=== PATIENT | female | born 1980 | race Caucasian/White ===

== ENCOUNTER 2018-11-21 09:28 | Emergency (ER) | payer MEDICAID ==
[2018-11-21] MEDS ORDERED: IBUPROFEN 800 MG TABLET PO ONE (09:41)
--- NOTE | 2018-11-21 10:25 | RADIOLOGY REPORT (SQ) ---
EXAM DESCRIPTION: ANKLE RIGHT COMPLETE COMPLETED DATE/TIME: 11/21/2018 9:53 am REASON FOR STUDY: ankle pain swelling, rolled ankle COMPARISON: None. NUMBER OF VIEWS: Three views right ankle. LIMITATIONS: None. FINDINGS: Marked soft tissue swelling laterally. Otherwise normal. OTHER: No other significant finding. IMPRESSION: Soft tissue swelling without gross fracture. TECHNICAL DOCUMENTATION: JOB ID: [id number] Reading location - IP/workstation name: [email or web address] MANUEL
--- NOTE | 2018-11-21 10:25 | ER Document Report ---
HPI - HPI Patient complains to provider of: Right ankle pain Time Seen by Provider: 11/21/18 09:40 Onset: Just prior to arrival Onset/Duration: Sudden Quality of pain: Achy Severity: Severe Pain Level: 4 Context: Patient presents emergency department with right ankle pain swelling. Patient reports that she rolled her ankle when she stepped on uneven ground, felt a pop, was able to walk barely afterwards. Denies past medical history of injury to the ankle. No other complaints such as fever vomiting diarrhea. Associated Symptoms: None Exacerbated by: Movement, Walking Relieved by: Denies Similar symptoms previously: No Recently seen / treated by doctor: No - CONSTITUTIONAL Constitutional: DENIES: Fever, Chills - REPRODUCTIVE Reproductive: DENIES: : - MUSCULOSKELETAL Musculoskeletal: REPORTS: Extremity pain - left ankle Past Medical History - General Information source: Patient - Social History Smoking Status: Unknown if Ever Smoked Cigarette use (# per day): No Frequency of alcohol use: None Drug Abuse: None Lives with: Family Family History: None Patient has suicidal ideation: No Patient has homicidal ideation: No Renal/ Medical History: Reports: Other - pelvic pain. Denies: Hx Peritoneal Dialysis Past Surgical History: Reports: Hx Cholecystectomy, Hx Gynecologic Surgery Vertical Provider Document - CONSTITUTIONAL Agree With Documented VS: Yes Exam Limitations: No Limitations General Appearance: WD/WN, Mild Distress - Winces when ankle palpated - HEENT HEENT: Atraumatic, Normocephalic - NECK Neck: Supple - RESPIRATORY Respiratory: No Respiratory Distress - CARDIOVASCULAR Cardiovascular: Regular Rate - MUSCULOSKELETAL/EXTREMETIES Musculoskeletal/Extremeties: Tender - Right ankle laterally swollen good pedal pulse good cap refill - NEURO Level of Consciousness: Awake, Alert, Appropriate - DERM Integumentary: Warm, Dry Adult Front & Back Diagram: 1 - Swelling, pain with touch, good pedal pulse good cap refill foot warm Course - Re-evaluation Re-evalutation: 11/21/18 10:56 No acute fracture. Patient was instructed on sprain. Instructed on plan of ca re follow-up with orthopedics she verbalized understanding. Reports she is taken [place] in the past without problems. Dictation of this chart was performed using voice recognition software; therefor e, there may be some unintended grammatical errors. - Vital Signs Vital signs: Temp Pulse Resp BP Pulse Ox 97.8 F 88 18 122/68 100 11/21/18 09:37 11/21/18 09:37 11/21/18 09:37 11/21/18 09:37 11/21/18 09:37 - Diagnostic Test Radiology reviewed: Image reviewed, Reports reviewed Procedures - Immobilization Right Ankle Immobilizer type: Ankle stirrup Performed by: ELOINA ojeda Post-Proc Neuro Vasc Exam: Unchanged from pre-exam Alignment checked and good: Yes Discharge - Discharge Clinical Impression: Right ankle pain Qualifiers: Chronicity: acute Qualified Code(s): M25.571 - Pain in right ankle and joints of right foot Ankle sprain Qualifiers: Encounter type: initial encounter Involved ligament of ankle: unspecified ligament Laterality: right Qualified Code(s): S93.401A - Sprain of unspecified ligament of right ankle, initial encounter Condition: Stable Disposition: HOME, SELF-CARE Instructions: Ankle Stirrup Splint ([facility]), Use of Crutches ([facility]), Ice & Elevation ([facility]), Oral Narcotic Medication ([facility]), Sprained Ankle ([facility]) Additional Instructions: *You have been evaluated for an ankle injury, sprain *Rest/Ice/Elevate your ankle *Maintain the splint *Use your crutches *Follow up with orthopedics- see information attached- within one week for recheck *Take medication as prescribed *Return to ED for worsening condition, changes, needs Prescriptions: Hydrocodone/Acetaminophen [[place] 5-325 mg Tablet] 1 tab PO QID #15 tablet Forms: Return to Work Referrals: AARON SEXTON MD [ASSOCIATE] - Follow up as needed [facility] [Provider Group] - Follow up as needed
[2018-11-21 11:14] VITALS: BP 132/78
== END 2018-11-21 11:14 | disposition home or self-care (01) ==
LOC: ER 09:28
DX: S93.401A Sprain of unspecified ligament of right ankle, initial encounter (principal); M25.571 Pain in right ankle and joints of right foot; X50.0XXA Overexertion from strenuous movement or load, initial encounter
CPT/HCPCS: 99283; 73610; L4350

== ENCOUNTER 2019-03-19 07:53 | Emergency (ER) | payer MEDICAID ==
[2019-03-19] MEDS ORDERED: METOCLOPRAMIDE HCL INJ/PF 10 MG/2 ML SDV IV ONE (08:58)
[2019-03-19] MEDS ORDERED: NORMAL SALINE 1000 ML 1,000 ML IV ONE (08:58)
--- NOTE | 2019-03-19 09:01 | ER Document Report ---
ED GI/ - General Chief Complaint: Nausea/Vomiting Stated Complaint: NAUSEA Time Seen by Provider: 03/19/19 08:48 Notes: Patient is a 39-year-old female who is 13 weeks who presents to emergency department with a chief complaint of nausea and vomiting. Patient reports throughout her whole she has had issues with vomiting. Patient reports over the past 24 hours she has vomited about 3 times. Patient reports she does have care and had an ultrasound at 11 weeks which was normal. Patient denies any vaginal bleeding, vaginal discharge or abdominal pain. Patient reports she drinks 1 can of fe sarmad per day and does nibble on food but has not been able to eat or drink much throughout this . Patient reports she just feels very dehydrated. Patient denies urinary symptoms. TRAVEL OUTSIDE OF THE [place] IN LAST 30 DAYS: No - Related Data Allergies/Adverse Reactions: naproxen Allergy (Verified 03/19/19 08:19) oxycodone [From OxyContin] Allergy (Verified 03/19/19 08:19) tramadol Allergy (Verified 03/19/19 08:19) Past Medical History - General Information source: Patient - Social History Smoking Status: Never Smoker Chew tobacco use (# tins/day): No Frequency of alcohol use: None Drug Abuse: None Lives with: Family Family History: None Patient has suicidal ideation: No Patient has homicidal ideation: No - Past Medical History Cardiac Medical History: Reports: None Pulmonary Medical History: Reports: None EENT Medical History: Reports: None Neurological Medical History: Reports: None Endocrine Medical History: Reports: None Renal/ Medical History: Reports: None. Denies: Hx Peritoneal Dialysis Malignancy Medical History: Reports: None GI Medical History: Reports: None Musculoskeletal Medical History: Reports None Skin Medical History: Reports None Psychiatric Medical History: Reports: None Traumatic Medical History: Reports: None Infectious Medical History: Reports: None Past Surgical History: Reports: Hx Cholecystectomy, Hx Gynecologic Surgery Review of Systems - Review of Systems Constitutional: No symptoms reported EENT: No symptoms reported Cardiovascular: No symptoms reported Respiratory: No symptoms reported Gastrointestinal: See HPI Genitourinary: No symptoms reported Female Genitourinary: No symptoms reported Musculoskeletal: No symptoms reported Skin: No symptoms reported Hematologic/Lymphatic: No symptoms reported Neurological/Psychological: No symptoms reported Physical Exam - Vital signs Vitals: Temp Pulse Resp BP Pulse Ox 98.1 F 111 H 18 145/75 H 100 03/19/19 07:57 03/19/19 07:57 03/19/19 07:57 03/19/19 07:57 03/19/19 07:57 Interpretation: Tachycardic - Notes Notes: Reviewed vital signs and nursing note as charted by RN. CONSTITUTIONAL: Well-appearing, well-nourished; attentive, alert and interactive with good eye contact; acting appropriately for age HEAD: Normocephalic; atraumatic; No swelling EYES: PERRL; Conjunctivae clear, no drainage; EOMI ENT: External ears without lesions; External auditory canal is patent; TMs without erythema, landmarks clear and well visualized; no rhinorrhea; Pharynx without erythema or lesions, no tonsillar hypertrophy, airway patent, somewhat dry mucous membranes, pink. NECK: Supple, no cervical lymphadenopathy, no masses CARD: Regular rate and rhythm; no murmurs, no rubs, no gallops, capillary refill < 2 seconds, symmetric pulses RESP: Respiratory rate and effort are normal. There is normal chest excursion. No respiratory distress, no retractions, no stridor, no nasal flaring, no accessory muscle use. The lungs are clear to auscultation bilaterally, no wheezing, no rales, no rhonchi. ABD/GI: Normal bowel sounds; non-distended; soft, non-tender, no rebound, no guarding, no palpable organomegaly EXT: Normal ROM in all joints; non-tender to palpation; no effusions, no edema SKIN: Normal color for age and race; warm; dry; good turgor; no acute lesions noted NEURO: No facial asymmetry; Moves all extremities equally; Motor and sensory function intact Course - Re-evaluation Re-evalutation: 03/19/19 09:01 Upon initial assessment patient is nontoxic-appearing. Patient does appear somewhat dehydrated as she has mildly dry mucous membranes. Patient is alert and oriented x3. Patient denies abdominal pain. Will obtain heart tones, basic labs and give IV fluids. Patient is agreement with this plan. 03/19/19 10:52 Patient reports feeling much better after receiving first liter of IV fluids. Patient has had no nausea or vomiting. Patient to provide a urine specimen. 03/19/19 11:41 Patient reports feeling much better after fluids. Patient has been able to tolerate water without vomiting or nausea. Patient's lab work was unremarkable. Have sent on a urine culture she did have moderate leukocytes but not a sign ificant amount of white blood cells. Patient given strict return precautions and follow-up with her [facility]. An ultrasound was used to visualize the fetus within the uterus. There was obvious cardiac movement and and the fetus was moving his arms and legs. - Vital Signs Vital signs: Temp Pulse Resp BP Pulse Ox 98.1 F 111 H 18 145/75 H 100 03/19/19 07:57 03/19/19 07:57 03/19/19 07:57 03/19/19 07:57 03/19/19 07:57 - Laboratory Result Diagrams: 03/19/19 09:53 03/19/19 09:53 Laboratory results interpreted by me: 03/19/19 03/19/19 03/19/19 09:53 09:53 11:00 RDW 14.4 H BUN 6 L Creatinine 0.49 L Alkaline Phosphatase 136 H Ur Leukocyte Esterase MODERATE H Laboratory 03/19/19 03/19/19 03/19/19 09:53 09:53 11:00 WBC 9.3 RBC 4.41 Hgb 12.5 Hct 36.9 MCV 84 MCH 28.4 MCHC 34.0 RDW 14.4 H Plt Count 353 Lymph % (Auto) 19.7 [place] % (Auto) 3.6 Eos % (Auto) 4.0 Baso % (Auto) 0.6 Absolute Neuts (auto) 6.7 Absolute Lymphs (auto) 1.8 Absolute Monos (auto) 0.3 Absolute Eos (auto) 0.4 Absolute Basos (auto) 0.1 Seg Neutrophils % 72.1 Sodium 137.7 Potassium 4.4 Chloride 105 Carbon Dioxide 23 Anion Gap 10 BUN 6 L Creatinine 0.49 L Est GFR ( Amer) > 60 Est GFR (MDRD) Non-Af > 60 Glucose 81 Calcium 9.7 Total Bilirubin 0.4 Direct Bilirubin 0.1 Neonat Total Bilirubin Not Reportable Neonat Direct Bilirubin Not Reportable Neonat Indirect Bili Not Reportable AST 18 ALT 18 Alkaline Phosphatase 136 H Total Protein 7.6 Albumin 4.0 Urine Color YELLOW Urine Appearance CLEAR Urine pH 7.0 Ur Specific [place] 1.010 Urine Protein NEGATIVE Urine Glucose (UA) NEGATIVE Urine Ketones NEGATIVE Urine Blood NEGATIVE Urine Nitrite NEGATIVE Urine Bilirubin NEGATIVE Urine Urobilinogen NEGATIVE Ur Leukocyte Esterase MODERATE H Urine WBC (Auto) 1 Urine RBC (Auto) 0 U Hyaline Cast (Auto) 1 Urine Bacteria (Auto) 1+ Squamous Epi Cells Auto 3 Urine Mucus (Auto) RARE Urine Ascorbic Acid NEGATIVE Discharge - Discharge Clinical Impression: Nausea Vomiting Qualifiers: Vomiting type: unspecified Vomiting Intractability: non-intractable Nausea presence: with nausea Qualified Code(s): R11.2 - Nausea with vomiting, unspecifi ed Qualifiers: Weeks of gestation: 13 weeks Qualified Code(s): Z3A.13 - 13 weeks gestation of Condition: Stable Disposition: HOME, SELF-CARE Instructions: Intravenous (IV) Fluids ([facility]) Additional Instructions: Today you are seen in the emergency department for nausea and vomiting with . We were able to visualize your baby on the ultrasound and did confirm cardiac movement. After receiving IV fluids and antinausea medication you have reported feeling much better. You are able to tolerate liquids at this time. Please continue to push fluids as tolerated. You are being prescribed Ph energan with antinausea medication. Phenergan does have a tendency to make you drowsy and sleepy. Please take caution and only take this medication if needed for vomiting. Please initiate a bland diet. Please return to the emergency department if you are unable to tolerate liquids, develop abdominal pain, vaginal bleeding or discharge or any other concerning signs or symptoms. Prescriptions: Promethazine HCl [Phenergan 25 mg Tablet] 25 mg PO Q6 PRN #15 tablet PRN Reason:
[2019-03-19 10:19] LABS: ABSOLUTE BASOPHILS # (AUTO) 0.1 10^3/uL (0.0-0.2); ABSOLUTE EOSINOPHILS # (AUTO) 0.4 10^3/uL (0.0-0.6); ABSOLUTE LYMPHOCYTES (AUTO) 1.8 10^3/uL (0.5-4.7); ABSOLUTE MONOCYTES (AUTO) 0.3 10^3/uL (0.1-1.4); ABSOLUTE NEUT (AUTO) 6.7 10^3/uL (1.7-8.2); BASOPHILS % (AUTO) 0.6 % (0-2); HEMATOCRIT 36.9 % (36.0-47.0); HEMOGLOBIN 12.5 g/dL (12.0-15.5); LYMPHOCYTES % (AUTO) 19.7 % (13-45); MEAN CORPUSCULAR HEMOGLOBIN 28.4 pg (27.0-33.4); MEAN CORPUSCULAR VOLUME 84 fl (80-97); MONOCYTES % (AUTO) 3.6 % (3-13); PLATELET COUNT 353 10^3/uL (150-450); RED BLOOD COUNT 4.41 10^6/uL (3.72-5.28); RED CELL DISTRIBUTION WIDTH 14.4 % (11.5-14.0); SEGMENTED NEUTROPHILS % (AUTO) 72.1 % (42-78); TOTAL CELLS COUNTED % (AUTO) 100 %; WHITE BLOOD COUNT 9.3 10^3/uL (4.0-10.5)
[2019-03-19 10:39] LABS: ALKALINE PHOSPHATASE 136 U/L (38-126); ANION GAP 10 (5-19); ASPARTATE AMINO TRANSFERASE 18 U/L (14-36); BILIRUBIN,DIRECT 0.1 mg/dL (0.0-0.4); BILIRUBIN,TOTAL 0.4 mg/dL (0.2-1.3); BLOOD UREA NITROGEN 6 mg/dL (7-20); CALCIUM 9.7 mg/dL (8.4-10.2); CARBON DIOXIDE 23 mmol/L (22-30); CHLORIDE 105 mmol/L (98-107); GLUCOSE 81 mg/dL (75-110); POTASSIUM 4.4 mmol/L (3.6-5.0); TOTAL PROTEIN 7.6 g/dL (6.3-8.2)
[2019-03-19 11:34] LABS: APPEARANCE,URINE CLEAR; BILIRUBIN,URINE NEGATIVE (NEGATIVE); COLOR,URINE YELLOW; GLUCOSE, URINE NEGATIVE (NEGATIVE); KETONES,URINE NEGATIVE (NEGATIVE); LEUKOCYTE ESTERASE,URINE MODERATE (NEGATIVE); NITRITE,URINE NEGATIVE (NEGATIVE); PROTEIN,URINE NEGATIVE (NEGATIVE); UROBILINOGEN,URINE NEGATIVE mg/dL (<2.0)
[2019-03-19 12:06] VITALS: BP 123/64
== END 2019-03-19 12:07 | disposition home or self-care (01) ==
LOC: ER 07:53
DX: O21.9 Vomiting of pregnancy, unspecified (principal); Z3A.13 13 weeks gestation of pregnancy; Z88.8 Allergy status to other drugs, medicaments and biological substances; Z88.5 Allergy status to narcotic agent; Z90.49 Acquired absence of other specified parts of digestive tract
CPT/HCPCS: 99283; 96361; 96374; 36415; 87086; 85025; 80053; 81001; J2765; J7030

== ENCOUNTER 2019-08-26 09:22 | Outpatient (CLI) | payer MEDICAID | END 2019-08-26 10:17 | disposition home or self-care (01) | LOC: LC 09:22 | PROVIDERS: ATTEND Student in an Organized Health Care Education/Training Program | PROC: 4A1HXCZ Monitoring of Products of Conception, Cardiac Rate, External Approach (ICD-10-PCS; principal; 2019-08-26) | DX: O09.523 Supervision of elderly multigravida, third trimester (principal); Z3A.36 36 weeks gestation of pregnancy | CPT/HCPCS: 59025 ==

== ENCOUNTER 2019-09-16 04:55 | Inpatient (IN) | payer MEDICAID ==
[2019-09-16] MEDS ORDERED: CEFAZOLIN SODIUM 3 GM in DEXTROSE 5%-WATER 100 ML IV PRN (05:00)
[2019-09-16] MEDS ORDERED: RINGERS SOLUTION,LACTATED 1,000 ML IV ONE (05:30)
[2019-09-16 05:44] LABS: APPEARANCE,URINE SLIGHTLY-CLOUDY; BILIRUBIN,URINE NEGATIVE (NEGATIVE); COLOR,URINE YELLOW; GLUCOSE, URINE NEGATIVE (NEGATIVE); KETONES,URINE NEGATIVE (NEGATIVE); LEUKOCYTE ESTERASE,URINE NEGATIVE (NEGATIVE); NITRITE,URINE NEGATIVE (NEGATIVE); PROTEIN,URINE NEGATIVE (NEGATIVE); URINE SPECIFIC GRAVITY 1.014; UROBILINOGEN,URINE NEGATIVE mg/dL (<2.0)
[2019-09-16 05:49] LABS: ABSOLUTE BASOPHILS # (AUTO) 0.1 10^3/uL (0.0-0.2); ABSOLUTE EOSINOPHILS # (AUTO) 0.4 10^3/uL (0.0-0.6); ABSOLUTE MONOCYTES (AUTO) 0.6 10^3/uL (0.1-1.4); ABSOLUTE NEUT (AUTO) 6.5 10^3/uL (1.7-8.2); BASOPHILS % (AUTO) 0.7 % (0-2); EOSINOPHILS % (AUTO) 4.3 % (0-6); HEMATOCRIT 32.4 % (36.0-47.0); HEMOGLOBIN 11.4 g/dL (12.0-15.5); LYMPHOCYTES % (AUTO) 21.1 % (13-45); MEAN CORPUSCULAR HEMOGLOBIN 29.6 pg (27.0-33.4); MEAN CORPUSCULAR HGB CONC 35.2 g/dL (32.0-36.0); MEAN CORPUSCULAR VOLUME 84 fl (80-97); MONOCYTES % (AUTO) 6.2 % (3-13); PLATELET COUNT 273 10^3/uL (150-450); RED BLOOD COUNT 3.84 10^6/uL (3.72-5.28); RED CELL DISTRIBUTION WIDTH 16.5 % (11.5-14.0); SEGMENTED NEUTROPHILS % (AUTO) 67.7 % (42-78); TOTAL CELLS COUNTED % (AUTO) 100 %; WHITE BLOOD COUNT 9.6 10^3/uL (4.0-10.5)
[2019-09-16 05:54] LABS: URINE AMPHETAMINES SCREEN NEGATIVE; URINE BARBITURATES SCREEN NEGATIVE; URINE BENZODIAZEPINES SCREEN NEGATIVE; URINE COCAINE SCREEN NEGATIVE; URINE MARIJUANA (THC) SCREEN NEGATIVE; URINE METHADONE SCREEN NEGATIVE; URINE PHENCYCLIDINE SCREEN NEGATIVE
[2019-09-16] MEDS: RINGERS SOLUTION,LACTATED 1,000 ML IV PRN ×2 (06:47→10:59)
[2019-09-16] MEDS ORDERED: OXYTOCIN 10 UNIT/ML VIAL ONE (07:42)
[2019-09-16] MEDS ORDERED: MIDAZOLAM 2 MG/2 ML INJ ONE (07:42)
[2019-09-16] MEDS ORDERED: FENTANYL CITRATE INJ/PF 100 MCG/2 ML AMPUL ONE ×2 (07:42→10:41)
[2019-09-16] MEDS ORDERED: PROPOFOL 0 MG/0 ML INFUS..BTL IV ONE (07:43)
[2019-09-16] MEDS ORDERED: EPHEDRINE SULFATE INJ 50 MG/1 ML AMPULE ONE (07:43)
[2019-09-16] MEDS ORDERED: PROPOFOL INJ 200 MG/20 ML VIAL IV ONE (07:43)
[2019-09-16] MEDS ORDERED: PROMETHAZINE HCL INJ 25 MG/1 ML VIAL IV PRN ×3 (07:49→08:23)
[2019-09-16] MEDS ORDERED: MEASLES,MUMPS&RUBELLA VACC/PF 0.5 ML VIAL SUBCUT PRN (07:49)
[2019-09-16] MEDS ORDERED: ACETAMINOPHEN 325 MG TABLET PO PRN (07:49)
[2019-09-16] MEDS ORDERED: HYDROMORPHONE HCL INJ/PF 2 MG/ML AMPULE IV PRN (07:49)
[2019-09-16] MEDS ORDERED: ACETAMINOPHEN 1,000 MG/100 ML RTUPB IV PRN (07:49)
[2019-09-16] MEDS ORDERED: OXYTOCIN/NORMAL SALINE 20 UNIT/1,000 ML RTUINJ IV PRN (07:49)
[2019-09-16] MEDS ORDERED: DIPH/PERTUSS(ACELL)/TETANUS VAC/PF 0.5 ML SYR (>=10YO) IM PRN (07:49)
[2019-09-16] MEDS ORDERED: OXYCODONE-ACETAMINOPHEN 5-325 MG TABLET PO PRN ×2 (07:49)
[2019-09-16] MEDS ORDERED: MEPERIDINE HCL/PF INJ 25 MG/1 ML DISP.SYRIN IV PRN (08:23)
[2019-09-16] MEDS ORDERED: DIPHENHYDRAMINE HCL 50 MG/ML VIAL IV PRN (08:23)
[2019-09-16] MEDS ORDERED: FENTANYL CITRATE INJ/PF 100 MCG/2 ML AMPUL IV PRN ×3 (08:23)
--- NOTE | 2019-09-16 09:27 | Operative Report ---
Operative Report DATE OF SURGERY: 09/16/19 PREOPERATIVE DIAGNOSIS: IUP at 39.0 wks EGA. History of shoulder dystocia. Hi story of third degree repair prior delivery. Undesired fertility POSTOPERATIVE DIAGNOSIS: Same as above OPERATION: Primary section and bilataral tubal ligation with filshie clips SURGEON: KOFI BOWMAN ANESTHESIA: Spinal TISSUE REMOVED OR ALTERED: Placenta COMPLICATIONS: None ESTIMATED BLOOD LOSS: 700 cc INTRAOPERATIVE FINDINGS: Normal appearing uterus, bilateral fallopian tubes and ovaries. Small para tubal cyst removed from the left paratubal cyst. Bilateral ovaries appear normal. Viable female with apgars of 8,9 at one and five minutes respectfully. weighed 3,615 gms or 8 lbs. PROCEDURE: IV fluids: 1,000 cc crystalloid per anesthesia record Urinary output: 300 cc Position: To recovery room in stable condition Description of procedure: The patient was taken to the operating room and spinal anesthesia was administered and found to be adequate. She was then placed on the OR table in the supine position with a slight leftward tilt. Patient was prepped and draped in usual sterile fashion. Ancef 3 gms was given IV prior to the procedure for infection prophylaxis. Timeout was taken. A Pfannenstiel skin incision was then made approximately 3 cm above the pubic symphysis and carried down to level the rectus fascia. The rectus fascia was then nicked in the midline with a scalpel and the fascial incision was extended laterally with use of curved Monge scissors. The rectus fascia was then grasped with 2 Kocker clamps elevated and the underlying rectus muscle was dissected off both bluntly and sharply. Any bleeding controlled with cautery. The rectus muscles were then split in the midline and the peritoneum was entered. The peritoneal incision was then extended by manually stretching the peritoneum. The bladder blade was p ositioned. Bladder flap created and bladder blade replaced. The bladder was noted to be out of harm's way. A scalpel was then used in the lower uterine for the hysterotomy, slowly until amniotomy was obtained a large amount of fluid was noted. The uterine incision was then manually stretched. The infant was noted to be in vertex postion but unengaged in the pelvis. The head was delivered with some difficulty due to transverse lie. Kiwi placed 1-2 cm from the posterior fontanell and over the sagital suture. Pressure applied to the green and gentle traction used to guide the head with asssistant pushing on the upper abdomen. After the delivery of the head, The shoulders and the rest of the body followed immediately. The cord was cut clamped and the was handed off to the nurse awaiting. Infant was crying prior to hand off. The placenta was manually delivered. Using a lap gauze the uterus was cleared of all clots and debris. The uterus was then exteriorized and a bladder blade was repositioned. The uterine incision was then closed with 0 Chromic suture in a running locked fashion. A second layer of the same suture was used in a running locked imbricated fashion. The uterine incision was inspected and noted to be hemostatic. Retractor was removed. The posterior aspect of the uterus was then inspected and anatomy was seen as above. The right fallopian tube was identified and traced to the fimbriated end. A filshie clip was placed approximately 2 cm from the uterine cornu. Clip surrounded the tube in its entirety. Blanching noted and hemostasis. The left fallopian tube was identified and traced to the fimbriated end. A filshie clip was placed approximately 2 cm from the uterine cornu. Clip surrounded the tube in its entirety. Blanching noted and hemostasis. The uterus was returned to its normal anatomic position within the abdominal cavity. Warm saline irrigation was used to clear all clots and debris from the abdomen. The uterine incision was inspected once more and noted to remain hemostatic. The bladder blade was removed and the peritoneum was closed with 2-0 chromic in a running fashion. The rectus muscles were then reapproximated and the rectus fascia was closed with a #1 PDS in a running fashion. The subcutaneous tissue was then inspected and any bleeding was controlled with Bovie electrocautery. The subcutaneous tissue was then closed with 2-0 Plain Gut suture in a running fashion. The skin was then closed with 3-0 Monocryl in a running subcuticular fashion. The skin incision was then clean dried and Dermabond was applied over the skin incision. All instrument sponge and needle counts were correct x3 for the procedure the patient tolerated the procedure well. She will proceed to recovery room in stable condition
[2019-09-16] MEDS ORDERED: ACETAMINOPHEN 1,000 MG/100 ML RTUPB IV ONE (09:37)
[2019-09-16] MEDS ORDERED: HYDROMORPHONE HCL INJ/PF 2 MG/ML AMPULE ONE (09:53)
[2019-09-16] MEDS: DOCUSATE SODIUM 100 MG CAPSULE PO SCH ×2 (10:00→17:19)
[2019-09-16] MEDS: PRENATAL VITAMIN W DHA CAPSULE PO SCH (10:00)
[2019-09-16] MEDS ORDERED: GLYCOPYRROLATE 1 MG/5 ML VIAL ONE (11:34)
[2019-09-16] MEDS ORDERED: ONDANSETRON HCL INJ/PF 4 MG/2 ML SDV ONE (11:34)
[2019-09-16] MEDS: HYDROCODONE/ACETAMINOPHEN 10-325 MG TABLET PO PRN ×2 (12:29→21:27)
[2019-09-16] MEDS ORDERED: KETOROLAC TROMETHAMINE INJ/PF 30 MG/1 ML SDV IV SCH ×2 (14:00→18:00)
[2019-09-16] MEDS: HYDROCODONE/ACETAMINOPHEN 5-325 MG TABLET PO PRN (17:21)
[2019-09-17] MEDS: HYDROCODONE/ACETAMINOPHEN 5-325 MG TABLET PO PRN (03:22)
[2019-09-17 06:38] LABS: HEMATOCRIT 30.5 % (36.0-47.0); HEMOGLOBIN 10.8 g/dL (12.0-15.5); MEAN CORPUSCULAR HEMOGLOBIN 29.7 pg (27.0-33.4); MEAN CORPUSCULAR HGB CONC 35.4 g/dL (32.0-36.0); MEAN CORPUSCULAR VOLUME 84 fl (80-97); PLATELET COUNT 228 10^3/uL (150-450); RED BLOOD COUNT 3.64 10^6/uL (3.72-5.28); RED CELL DISTRIBUTION WIDTH 16.5 % (11.5-14.0); WHITE BLOOD COUNT 10.4 10^3/uL (4.0-10.5)
[2019-09-17] MEDS: HYDROCODONE/ACETAMINOPHEN 10-325 MG TABLET PO PRN ×3 (08:52→20:35)
--- NOTE | 2019-09-17 10:04 | PDOC PROGRESS REPORT ---
Subjective-OB Progress Note for:: 09/17/19 Subjective: reports bleeding slowing, pain controlled with current meds, denies needs. not passing gas Physical Exam (OB) Vital Signs: Temp Pulse Resp BP Pulse Ox 97.9 F 85 17 127/75 H 99 09/17/19 07:38 09/17/19 07:38 09/17/19 07:38 09/17/19 07:38 09/17/19 07:38 Intake & Output 09/16/19 09/17/19 09/18/19 06:59 06:59 06:59 Intake Total 1325 Output Total 3700 Balance -2375 Weight 95.71 kg - Dressing Removed: No Incision: Open, Well Approximated Closure Type: Surgical Glue - Abdomen Description: Tender, Soft, Round Hernia Present: No Bowel Sounds: Hypoactive Fundal Description: Firm, Midline Fundal Height: u/u - u/2 - Extremities Lower extremities: Jesse's sign - neg Calf: Normal, Nontender Objective-Diagnostic Laboratory: 09/17/19 06:24 09/17/19 06:24 WBC 10.4 RBC 3.64 L Hgb 10.8 L Hct 30.5 L MCV 84 MCH 29.7 MCHC 35.4 RDW 16.5 H Plt Count 228 Assessment and Plan(PN) - Assessment and Plan (1) Encounter for sterilization Is this a current diagnosis for this admission?: Yes (2) History of delivery Is this a current diagnosis for this admission?: Yes (3) S/P repeat low transverse Is this a current diagnosis for this admission?: Yes (4) Vacuum-assisted delivery, delivered, current hospitalization Is this a current diagnosis for this admission?: Yes - Time Spent with Patient Time with patient: Less than 15 minutes - Disposition Anticipated Discharge: Home Within: within 48 hours
[2019-09-17] MEDS: PRENATAL VITAMIN W DHA CAPSULE PO SCH (10:10)
[2019-09-17] MEDS: DOCUSATE SODIUM 100 MG CAPSULE PO SCH ×2 (10:10→17:40)
[2019-09-17] MEDS: SIMETHICONE 80 MG TAB.CHEW PO PRN ×2 (10:11→17:42)
[2019-09-18] MEDS: HYDROCODONE/ACETAMINOPHEN 10-325 MG TABLET PO PRN ×2 (02:35→08:58)
[2019-09-18] MEDS: SIMETHICONE 80 MG TAB.CHEW PO PRN ×2 (02:38→09:02)
[2019-09-18] MEDS: PRENATAL VITAMIN W DHA CAPSULE PO SCH (09:02)
[2019-09-18] MEDS: DOCUSATE SODIUM 100 MG CAPSULE PO SCH (09:02)
--- NOTE | 2019-09-18 10:16 | PDOC DISCHARGE SUMMARY ---
Impression - Admit/DC Date/PCP Admission Date/Primary Care Provider: 09/16/19 04:55 KOFI BOWMAN MD Discharge Date: 09/18/19 - Discharge Diagnosis (1) Encounter for sterilization Is this a current diagnosis for this admission?: Yes (2) History of delivery Is this a current diagnosis for this admission?: Yes (3) S/P repeat low transverse Is this a current diagnosis for this admission?: Yes (4) Vacuum-assisted delivery, delivered, current hospitalization Is this a current diagnosis for this admission?: Yes - Additional Information Resuscitation Status: Full Code Discharge Diet: Regular Discharge Activity: Activity As Tolerated, Balance Activity w/Rest, No Lifting Over 10 Pounds, No Lifting/Push/Pulling, Pelvic Rest, No tub bath Referrals: KOFI BOWMAN MD [Primary Care Provider] - Prescriptions: Hydrocodone/Acetaminophen [[place] 5-325 mg Tablet] 1 tab PO Q4HP PRN #30 tablet PRN Reason: Prenat 115/Iron Fum/Folic/Dss [ 19 Tablet] 1 each PO DAILY #90 Home Medications: Docusate Sodium [Colace 100 mg Capsule] 100 mg PO DAILY 09/15/19 Hydrocodone/Acetaminophen [[place] 5-325 mg Tablet] 1 tab PO Q4HP PRN #30 tablet 09/18/19 Prenat 115/Iron Fum/Folic/Dss [ 19 Tablet] 1 each PO DAILY #90 09/18/19 HPI Gestational Age: 39 Reason(s) for Admission: Ceasarean Section-Primary - for a history of shoulder dystocia Intrapartum Procedure(s): : Low Cervical, Transverse Results Laboratory Results: WBC 10.4 10^3/uL (4.0-10.5) 09/17/19 06:24 RBC 3.64 10^6/uL (3.72-5.28) L 09/17/19 06:24 Hgb 10.8 g/dL (12.0-15.5) L 09/17/19 06:24 Hct 30.5 % (36.0-47.0) L 09/17/19 06:24 MCV 84 fl (80-97) 09/17/19 06:24 MCH 29.7 pg (27.0-33.4) 09/17/19 06:24 MCHC 35.4 g/dL (32.0-36.0) 09/17/19 06:24 RDW 16.5 % (11.5-14.0) H 09/17/19 06:24 Plt Count 228 10^3/uL (150-450) 09/17/19 06:24 Lymph % (Auto) 21.1 % (13-45) 09/16/19 05:30 [place] % (Auto) 6.2 % (3-13) 09/16/19 05:30 Eos % (Auto) 4.3 % (0-6) 09/16/19 05:30 Baso % (Auto) 0.7 % (0-2) 09/16/19 05:30 Absolute Neuts (auto) 6.5 10^3/uL (1.7-8.2) 09/16/19 05:30 Absolute Lymphs (auto) 2.0 10^3/uL (0.5-4.7) 09/16/19 05:30 Absolute Monos (auto) 0.6 10^3/uL (0.1-1.4) 09/16/19 05:30 Absolute Eos (auto) 0.4 10^3/uL (0.0-0.6) 09/16/19 05:30 Absolute Basos (auto) 0.1 10^3/uL (0.0-0.2) 09/16/19 05:30 Seg Neutrophils % 67.7 % (42-78) 09/16/19 05:30 POC Glucose 96 mg/dL (70-110) 09/16/19 05:25 Urine Color YELLOW 09/16/19 05:20 Urine Appearance SLIGHTLY-CLOUDY 09/16/19 05:20 Urine pH 7.0 (5.0-9.0) 09/16/19 05:20 Ur Specific [place] 1.014 09/16/19 05:20 Urine Protein NEGATIVE mg/dL (NEGATIVE) 09/16/19 05:20 Urine Glucose (UA) NEGATIVE mg/dL (NEGATIVE) 09/16/19 05:20 Urine Ketones NEGATIVE mg/dL (NEGATIVE) 09/16/19 05:20 Urine Blood NEGATIVE (NEGATIVE) 09/16/19 05:20 Urine Nitrite NEGATIVE (NEGATIVE) 09/16/19 05:20 Urine Bilirubin NEGATIVE (NEGATIVE) 09/16/19 05:20 Urine Urobilinogen NEGATIVE mg/dL (<2.0) 09/16/19 05:20 Ur Leukocyte Esterase NEGATIVE (NEGATIVE) 09/16/19 05:20 Urine WBC (Auto) 3 /HPF 09/16/19 05:20 Urine RBC (Auto) 3 /HPF 09/16/19 05:20 Urine Bacteria (Auto) 2+ /HPF 09/16/19 05:20 Squamous Epi Cells Auto 3 /HPF 09/16/19 05:20 Urine Mucus (Auto) OCC /LPF 09/16/19 05:20 Urine Ascorbic Acid NEGATIVE (NEGATIVE) 09/16/19 05:20 Urine Opiates Screen NEGATIVE 09/16/19 05:20 Urine Methadone Screen NEGATIVE 09/16/19 05:20 Ur Barbiturates Screen NEGATIVE 09/16/19 05:20 Ur Phencyclidine Scrn NEGATIVE 09/16/19 05:20 Ur Amphetamines Screen NEGATIVE 09/16/19 05:20 U Benzodiazepines Scrn NEGATIVE 09/16/19 05:20 Urine Cocaine Screen NEGATIVE 09/16/19 05:20 U Marijuana (THC) Screen NEGATIVE 09/16/19 05:20 Blood Type O NEGATIVE 09/17/19 09:05 Antibody Screen NEGATIVE 09/16/19 05:30 Screen NEGATIVE 09/17/19 09:05 Plan Plan of Treatment: follow up in 4weeks at [facility] for post check
[2019-09-18 11:53] VITALS: BP 120/78
== END 2019-09-18 13:40 | disposition home or self-care (01) | DRG 785 ==
LOC: 2S 04:55
PROVIDERS: ADMIT Obstetrics & Gynecology; ATTEND Obstetrics & Gynecology
PROC: 0UL70CZ Occlusion of Bilateral Fallopian Tubes with Extraluminal Device, Open Approach (ICD-10-PCS; 2019-09-16)
PROC: 10D00Z1 Extraction of Products of Conception, Low, Open Approach (ICD-10-PCS; principal; 2019-09-16 07:45)
DX: O24.420 Gestational diabetes mellitus in childbirth, diet controlled (principal); O99.02 Anemia complicating childbirth; D64.9 Anemia, unspecified; O99.214 Obesity complicating childbirth; E66.9 Obesity, unspecified; Z30.2 Encounter for sterilization; Z37.0 Single live birth; Z87.59 Personal history of other complications of pregnancy, childbirth and the puerperium; Z3A.39 39 weeks gestation of pregnancy
CPT/HCPCS: 1961; 36415; 59025; 80307; 81001; 82962; 85025; 85027; 85461; 86850; 86900; 86901; 94760; 94799; J0131; J0690; J1170; J2250; J2405; J2550; J2590; J2704; J2790; J3010; J3490; J7060; J7120